=== PATIENT | male | born 1960 | race Caucasian/White ===

== ENCOUNTER 2017-11-12 12:07 | Emergency (ER) | payer OTHER ==
[~2017-11-12] VITALS: Ht 170.2 cm; Wt 77.1 kg
[2017-11-12 12:36] LABS: ABSOLUTE BASOPHIL COUNT 0.1 /CUMM (0.0-0.2); ABSOLUTE EOSINOPHIL COUNT 0.5 /CUMM (0.0-0.7); ABSOLUTE GRANULOCYTE CT 4.9 /CUMM (1.4-6.5); ABSOLUTE LYMPH COUNT 3.2 /CUMM (1.2-3.4); ABSOLUTE MONOCYTE COUNT 0.9 /CUMM (0.10-0.60); BASOPHIL % 0.5 % (0.0-2.0); GRANULOCYTE % 51.6 % (42.2-75.2); HEMATOCRIT 41.5 % (42-52); MEAN CORPUSCULAR HGB 29.5 PG (27.0-31.0); MEAN CORPUSCULAR HGB CONC 34.2 G/DL (33.0-37.0); MEAN CORPUSCULAR VOLUME 86.3 FL (80.0-94.0); MEAN PLATELET VOLUME 9.4 FL (7.4-10.4); PLATELET COUNT 175 /CUMM (130-400); RBC DISTRIBUTION WIDTH 13.1 % (11.5-14.5); WHITE BLOOD CELL COUNT 9.5 /CUMM (4.8-10.8)
[2017-11-12] MEDS ORDERED: LYRICA75 M1 PO (13:00)
[2017-11-12] MEDS ORDERED: AMITRIPTYLINE100 M2 PO (13:01)
[2017-11-12] MEDS ORDERED: BUPROPION XL150 MG PO (13:01)
[2017-11-12] MEDS ORDERED: BENICAR20 M1 PO (13:01)
--- NOTE | 2017-11-12 13:19 | ED CARDIAC/CP/PALPITATIONS ---
History of Present Illness General Chief Complaint: Chest Pain Stated Complaint: WEAKNESS ARM PAIN Source: patient Exam Limitations: no limitations Vital Signs & Intake/Output Vital Signs & Intake/Output Vital Signs Date Time Temp Pulse Resp B/P B/P Pulse O2 O2 Flow FiO2 Mean Ox Delivery Rate 11/12 1339 97 Room Air 11/12 1209 96.8 93 18 168/95 97 Room Air Allergies Coded Allergies: Penicillins (Severe, ITCHY 11/12/17) Reconcile Medications Amitriptyline HCl 100 MG TABLET 1 TAB PO QPM UNKNOWN (Reported) Bupropion HCl (Bupropion XL) 150 MG TAB.ER.24H 1 TAB PO QAM MENTAL HEALTH ( Reported) Olmesartan Medoxomil (Benicar) 20 MG TABLET 1 TAB PO DAILY HEART (Reported) Pregabalin (Lyrica) 75 MG CAPSULE 1 CAP PO TID PAIN (Reported) Triage Note: 57 Y/O MALE C/O "NOT FEELING WELL". WAS AT WORK THIS MORNING AND HAD SUDDEN ONSET "BOTH ARMS FELT HEAVY AND I WAS WEAK. I GOT REAL DIZZY AND HAD TO SIT DOWN. I STILL DONT FEEL RIGHT". DENIES C/P. DENIES SOB. DENIES N/V/D. TAKEN FOR EKG AND BLOODWORK Triage Nurses Notes Reviewed? yes Onset: Abrupt Duration: hour(s): (6), better, changing over time, continues in ED Timing: single episode today Quality/Severity: moderate Location: bilateral arms Radiation: no radiation Activities at Onset: activity Prior Chest Pain/Card Workup: no prior chest pain, no prior cardiac workup Nitro Today/Relief: no nitro taken today Aspirin Today: no aspirin today Associated Symptoms: dizziness HPI: 57-year-old male past medical history of fibromyalgia presents for evaluation of dizziness, lightheadedness and bilateral arm weakness and heaviness. Patient states that symptoms started relatively abruptly while he was at work. He states that he suddenly felt flushed and his arms are very heavy. He also felt dizzy and lightheaded. He states that he was able to sit down and never passed out. Never had chest pain or shortness of breath. Patient states that the symptoms improved slightly for this first started however he still feels a little weak and heaviness in his arms. Current no chest pain short of breath hemoptysis lower extremity edema back pain abdominal pain nausea vomiting sweats or chills. He does not drink smoke or use any drugs. No recent surgery recent trauma. No melena. (Steve Lamb) Past History Travel History Traveled to [place] past 21 day No Medical History Any Pertinent Medical History? see below for history Neurological: NONE EENT: NONE Cardiovascular: NONE Respiratory: NONE Gastrointestinal: NONE Hepatic: NONE Renal: NONE Musculoskeletal: FIBROMYALGIA Psychiatric: NONE Endocrine: NONE Blood Disorders: NONE Cancer(s): NONE SIGNAL INTELLIGENCE ANALYST/Reproductive: NONE Surgical History Surgical History: non-contributory Psychosocial History Who do you live with Spouse Services at Home None What is your primary language Swedish Tobacco Use: Quit >30 days ago Family History Hx Contributory? No (Steve Lamb) Review of Systems Review of Systems Constitutional: Reports: weakness. EENTM: Reports: no symptoms. Respiratory: Reports: no symptoms. Cardiovascular: Reports: no symptoms. GI: Reports: no symptoms. Genitourinary: Reports: no symptoms. Musculoskeletal: Reports: see HPI. Skin: Reports: no symptoms. Neurological/Psychological: Reports: see HPI (dizzy). Hematologic/Endocrine: Reports: no symptoms. Immunologic/Allergic: Reports: no symptoms. All Other Systems: Reviewed and Negative (Steve Lamb) Physical Exam Physical Exam General Appearance: well developed/nourished, no apparent distress, alert, awake Head: atraumatic, normal appearance Eyes: Bilateral: normal appearance, PERRL, EOMI. Ears, Nose, Throat: normal pharynx, normal ENT inspection, hearing grossly normal Neck: normal inspection, supple, full range of motion Respiratory: normal breath sounds, chest non-tender, no respiratory distress, lungs clear Cardiovascular: regular rate/rhythm, normal peripheral pulses Peripheral Pulses: 2+ radial (R), 2+ radial (L) Gastrointestinal: normal bowel sounds, soft, non-tender, no organomegaly Back: normal inspection, normal range of motion, no vertebral tenderness Extremities: normal inspection, normal capillary refill, normal range of motion, no edema Neurologic/Psych: no motor/sensory deficits, awake, alert, oriented x 3, normal gait, normal mood/affect, 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 Yes No ASA d/t ruled out CVA/TIA Diagnosis No Sepsis Present: No Sepsis Focused Exam Completed? No (Black PA,Steve) Progress Differential Diagnosis: AMI, aortic dissection, atrial fibrillation, CHF/pulm edema, costochondritis, hyperkalemia, hyperthyroid, musculoskeletal pain, pericarditis, pneumonia, pneumothorax, PSVT, pulmonary embolism, respiratory failure, unstable angina, V-fib/V-Tach, WPW syndrome Plan of Care: Orders Procedure Date/time Status TROPONIN LEVEL 11/12 1600 Complete EKG 11/12 1600 Active Add-on Test (ER Only) 11/12 1320 Active MISTAKE 11/12 1320 Active URINALYSIS 11/12 1320 Complete MAGNESIUM 11/12 1220 Complete D-DIMER 11/12 1220 Complete TROPONIN LEVEL 11/12 1211 Complete COMPREHENSIVE METABOLIC PANEL 11/12 1211 Complete CBC WITHOUT DIFFERENTIAL 11/12 1211 Complete EKG 11/12 1208 Active Laboratory Tests 11/12/17 1553: Troponin I < 0.01 11/12/17 1356: Urine Color YEL, Urine Clarity CLEAR, Urine pH 6.0, Ur Specific [place] 1.010, Urine Protein NEG, Urine Ketones NEG, Urine Nitrite NEG, Urine Bilirubin NEG, Urine Urobilinogen 0.2, Ur Leukocyte Esterase NEG, Ur Microscopic EXAM NOT REQUIRED, Urine Hemoglobin NEG, Urine Glucose NEG 11/12/17 1220: Anion Gap 11, Estimated GFR > 60, BUN/Creatinine Ratio 30.0 H, Glucose 103 H, Calcium 9.5, Magnesium 2.1, Total Bilirubin 0.3, AST 24, ALT 37, Alkaline Phosphatase 64, Troponin I < 0.01, Total Protein 7.0, Albumin 4.4, Globulin 2.6, Albumin/Globulin Ratio 1.7, D-Dimer High Sensitivty < 200, CBC w Diff NO MAN DIFF REQ, RBC 4.80, MCV 86.3, MCH 29.5, MCHC 34.2, RDW 13.1, MPV 9.4, Gran % 51.6, Lymphocytes % 33.8, Monocytes % 9.1, Eosinophils % 5.0, Basophils % 0.5, Absolute Granulocytes 4.9, Absolute Lymphocytes 3.2, Absolute Monocytes 0.9 H, Absolute Eosinophils 0.5, Absolute Basophils 0.1 Patient seen and evaluated. He denies any chest pain or shortness of breath during these episodes. No headaches fever or loss of consciousness. He has no sniffing a cardiac history. Initial EKG troponin are negative. Chest x-rays negative d-dimer is negative. Patient is feeling significantly better since symptoms started. He was and related has a steady gait. Orthostatic blood pressures are negative. We'll check a repeat EKG troponin at this is negative patient can go home follow up with his primary care doctor. Repeat EKG troponin are negative and unchanged. Patient on reevaluation is now asymptomatic and feeling completely fine. He denies any symptoms whatsoever. Reviewed all results of today's visit with patient. Advised him to rest her plain fluids make a follow-up appointment with primary care. Discussed return precautions return with any concerns. Case discussed with Dr. Alexandre he agrees. Diagnostic Imaging: Viewed by Me: Radiology Read. Discussed w/RAD: Radiology Read. CXR Impression: PATIENT: TRE OVIEDO PRESENT AGE: 57 PATIENT ACCOUNT NO: [id number] : 60 LOCATION: [facility] ORDERING PHYSICIAN: Steve JOHNSON SERVICE DATE: 11/12/17 EXAM TYPE: RAD - XRY-CHEST XRAY, TWO VIEWS EXAMINATION: CR CHEST CLINICAL INFORMATION: Chest tightness and dizziness. Presumptive diagnosis of pneumonia, CHF. COMPARISON: Chest x-ray dated 07/18/2009. TECHNIQUE: 2 views of the chest were obtained. FINDINGS: The cardiomediastinal silhouette is within normal limits in size. Lungs bilaterally are symmetrically expanded and clear. No focal consolidation, effusion or pneumothorax is seen. Bony structures are unremarkable. IMPRESSION: Unremarkable examination. DICTATED BY: Yoly Tinoco MD DATE/TIME DICTATED:11/12/171357 SUPERINTENDENT MECHANICAL:KEVIN DATE/TIME TRANSCRIBED:11/12/171357 CONFIDENTIAL, DO NOT COPY WITHOUT APPROPRIATE AUTHORIZATION. <Electronically signed in Other Vendor System> SIGNED BY: Yoly Tinoco MD 11/12/17 1401 Initial ED EKG: normal sinus rhythm, no ST T wave changes (Steve Lamb) Departure Departure Disposition: HOME OR SELF CARE Condition: Stable Clinical Impression Primary Impression: Dizziness Referrals: Roni CORNEJO,Joey Lock (PCP/Family) Ester CORNEJO PHD,Juan R Cameron Additional Instructions: Rest and drink plenty of fluids. Continue to take all medications as directed. 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 Monitor symptoms closely return with any concerns. Departure Forms: Customer Survey General Discharge Information (Steve Lamb) PA/HORSERADISH GRINDER Co-Sign Statement Statement: ED Attending supervision documentation- [] I saw and evaluated the patient. I have also reviewed all the pertinent lab results and diagnostic results. I agree with the findings and the plan of care as documented in the PA's/HORSERADISH GRINDER's documentation. [X] I have reviewed the ED Record and agree with the PA's/HORSERADISH GRINDER's documentation. [] Additions or exceptions (if any) to the PAs/HORSERADISH GRINDER's note and plan are summarized below: [] (Baldomero CORNEJO,Asher Espinoza) Critical Care Note Critical Care Note Critical Care Time: non-applicable (Steve Lamb)
--- NOTE | 2017-11-12 14:01 | RADIOLOGY REPORT ---
EXAMINATION: CR CHEST CLINICAL INFORMATION: Chest tightness and dizziness. Presumptive diagnosis of pneumonia, CHF. COMPARISON: Chest x-ray dated 07/18/2009. TECHNIQUE: 2 views of the chest were obtained. FINDINGS: The cardiomediastinal silhouette is within normal limits in size. Lungs bilaterally are symmetrically expanded and clear. No focal consolidation, effusion or pneumothorax is seen. Bony structures are unremarkable. IMPRESSION: Unremarkable examination.
[2017-11-12 17:06] VITALS: BP 146/88
== END 2017-11-12 17:06 ==
LOC: ERH 12:07
PROVIDERS: Emergency Medicine
DX: R42 Dizziness and giddiness (principal)
CPT/HCPCS: 71046; 81003; 93005; 93010